=== PATIENT | female | born 1990 | race Caucasian/White ===

== ENCOUNTER 2017-06-04 08:35 | Emergency (ER) | payer OTHER ==
[~2017-06-04] VITALS: Ht 154.9 cm; Wt 67.4 kg
[~2017-06-04 08:35] MED LIST: AMOXICILLIN500 M1 PO; MOTRIN800 MG PO; NOHOMEMEDS; PREDNISONE20 MG PO; PROAIR HFA8.5 GM IH; TESSALON PERLE100 MG PO; TYLENOL EXTRA500 MG; ULTRACET1 TABLET PO; VICODIN,LORT1 TABLET PO; ZITHROMAX Z-PA250 MG PO; ~No Medications
[2017-06-04] MEDS ORDERED: ZITHROMAX250 MG PO (10:13)
[2017-06-04 10:20] VITALS: BP 102/76
== END 2017-06-04 10:26 | disposition home or self-care (01) ==
LOC: EME 08:35
DX: R51 Headache (principal); J32.9 Chronic sinusitis, unspecified; B34.9 Viral infection, unspecified; R09.89 Other specified symptoms and signs involving the circulatory and respiratory systems; R05 Cough; R11.0 Nausea; R22.0 Localized swelling, mass and lump, head; F17.200 Nicotine dependence, unspecified, uncomplicated
CPT/HCPCS: 70450; 99281; 99284

== ENCOUNTER 2017-07-15 10:01 | Emergency (ER) | payer OTHER ==
[~2017-07-15] VITALS: Ht 154.9 cm; Wt 67.7 kg
[~2017-07-15 10:01] MED LIST changes: +ZITHROMAX250 MG PO
[2017-07-15] MEDS ORDERED: PEN-VEE K,VEET500 MG PO (10:22)
[2017-07-15] MEDS ORDERED: NORCO 5/3251 TABLET PO (10:22)
[2017-07-15 10:35] VITALS: BP 122/86
== END 2017-07-15 10:36 | disposition home or self-care (01) ==
LOC: EME 10:01
DX: K02.9 Dental caries, unspecified (principal); K08.89 Other specified disorders of teeth and supporting structures; F17.200 Nicotine dependence, unspecified, uncomplicated; Z88.6 Allergy status to analgesic agent
CPT/HCPCS: 99281; 99284

== ENCOUNTER 2017-09-01 15:07 | Emergency (ER) | payer OTHER ==
[~2017-09-01] VITALS: Ht 154.9 cm; Wt 66.8 kg
[~2017-09-01 15:07] MED LIST changes: +NORCO 5/3251 TABLET PO; +PEN-VEE K,VEET500 MG PO
[2017-09-01] MEDS ORDERED: MOTRIN600 MG PO (18:14)
[2017-09-01] MEDS ORDERED: NORCO 5/3251 TABLET PO (18:14)
[2017-09-01] MEDS ORDERED: FLEXERIL5 MG PO (18:14)
[2017-09-01 18:34] VITALS: BP 123/70
== END 2017-09-01 18:34 | disposition home or self-care (01) ==
LOC: EME 15:07
DX: M54.5 Low back pain (principal); F17.200 Nicotine dependence, unspecified, uncomplicated; Z88.5 Allergy status to narcotic agent; Z88.8 Allergy status to other drugs, medicaments and biological substances
CPT/HCPCS: 99281; 99283; J1100